=== PATIENT | female | born 1975 | race Caucasian/White ===

== ENCOUNTER 2023-02-25 06:47 | Day surgery (SDC) | payer OTHER ==
[~2023-02-25] VITALS: Ht 154.9 cm; Wt 52.2 kg
[2023-02-25] MEDS ORDERED: SODIUM CHLORIDE 0.9% 1,000 ML IV ONE (07:00)
[2023-02-25] MEDS ORDERED: SODIUM CHLORIDE 0.9% 1,000 ML ONE (07:11)
[2023-02-25] MEDS ORDERED: MONT-35 PO (07:43)
[2023-02-25] MEDS ORDERED: MELO-381 PO (07:43)
[2023-02-25] MEDS ORDERED: ALBU18HF12 IH (07:43)
[2023-02-25] MEDS ORDERED: PRED-729 PO (07:43)
[2023-02-25] MEDS ORDERED: FAMO20 PO (07:43)
[2023-02-25] MEDS ORDERED: PROM6.2527 PO (07:43)
[2023-02-25] MEDS ORDERED: FLUT16SP NASAL (07:43)
[2023-02-25] MEDS ORDERED: DOXY-354 PO (07:43)
[2023-02-25] MEDS ORDERED: AMIT-166 PO (07:43)
[2023-02-25] MEDS ORDERED: DULO-113 PO (07:43)
[2023-02-25] MEDS ORDERED: GALC120S (07:43)
[2023-02-25] MEDS ORDERED: FentaNYL CITRATE PF 100 MCG/2 ML VIAL ONE (08:42)
[2023-02-25] MEDS ORDERED: MIDAZOLAM HCL 2 MG/2 ML VIAL ONE (08:42)
[2023-02-25] MEDS ORDERED: MethylPREDNISolone SOD SUCC 125 MG/2 ML VIAL ONE (08:57)
[2023-02-25 09:00] VITALS: PULSE 91; RESP 23; O2SAT 100
[2023-02-25] MEDS ORDERED: MethylPREDNISolone SOD SUCC 125 MG/2 ML VIAL IVP ONE (09:00)
[2023-02-25] MEDS ORDERED: PROMETHAZINE HCL/CODEINE 6.25-10MG/5ML SOLUTION UDCUP PO ONE (09:30)
== END 2023-02-25 11:05 | disposition home or self-care (01) ==
LOC: SURGERY 06:47
PROVIDERS: ATTEND Internal Medicine Critical Care Medicine
DX: J38.4 Edema of larynx (principal); B37.0 Candidal stomatitis; F17.210 Nicotine dependence, cigarettes, uncomplicated; Z98.890 Other specified postprocedural states; Z98.51 Tubal ligation status; F41.9 Anxiety disorder, unspecified; I85.00 Esophageal varices without bleeding; Z79.899 Other long term (current) drug therapy
CPT/HCPCS: 31623; 87206; 87101; 87220; 87070; 88108; 88305; 31624; 94640; 71045; 71250; 87015; J3010; J2250; J2930; J7030